=== PATIENT | male | born 1985 | race African-American/Black ===

== ENCOUNTER 2016-11-27 14:03 | Emergency (ER) | payer SELFPAY ==
--- NOTE | 2016-11-27 14:30 | NUR ---
no answer out in er lobby
--- NOTE | 2016-11-27 14:33 | NUR ---
PATIENT LEFT WITHOUT BEING SEEN BY DR. JORDAN. NO FURTHER CARE PROVIDED FOR PATIENT.
== END 2016-11-27 14:33 | disposition left against medical advice (07) ==
LOC: MED 14:03
DX: S69.91XA Unspecified injury of right wrist, hand and finger(s), initial encounter (principal); Z53.21 Procedure and treatment not carried out due to patient leaving prior to being seen by health care provider; X58.XXXA Exposure to other specified factors, initial encounter; Y93.89 Activity, other specified; Y92.89 Other specified places as the place of occurrence of the external cause; Y99.8 Other external cause status

== ENCOUNTER 2022-07-16 19:08 | Emergency (ER) | payer OTHER ==
[~2022-07-16] VITALS: Ht 193 cm; Wt 103.9 kg
[2022-07-16 19:15] VITALS: BP 143/79
--- NOTE | 2022-07-16 19:18 | NUR ---
TO LOBBY A/W BED AMBULATORY
[2022-07-16] MEDS ORDERED: ACETAMINOPHEN 325 MG TAB PO ONE (19:25)
--- NOTE | 2022-07-16 22:00 | NUR ---
PT TO BED #6
[2022-07-16] MEDS ORDERED: NACL 0.9% 1,000 ML IV ONE (22:25)
[2022-07-16 23:05] LABS: BASOPHILS % (AUTO) 0.6 % (0.0-2.0); EOSINOPHILS % (AUTO) 0.1 % (0.0-4.0); HEMATOCRIT 44.6 % (36-52); HEMOGLOBIN 14.9 g/dL (12.0-18.0); LYMPHOCYTES % (AUTO) 18.5 % (20.5-51.1); MEAN CORPUSCULAR HEMOGLOBIN 27 pg (27-31); MEAN CORPUSCULAR HGB CONC 33 g/dL (33-37); MEAN CORPUSCULAR VOLUME 79.7 fL (80-94); MONOCYTES # (AUTO) 0.5 K/uL (0.8-1.0); MONOCYTES % (AUTO) 8.9 % (1.7-9.3); NEUTROPHILS # (AUTO) 3.8 K/uL (1.8-7.7); NEUTROPHILS % (AUTO) 71.9 % (42.2-75.2); PLATELET COUNT (AUTO) 77 K/uL (140-450); RED CELL DISTRIBUTION WIDTH 14.8 % (11.6-13.7); WHITE BLOOD COUNT (AUTO) 5.2 K/uL (4.8-10.8)
[2022-07-16 23:22] LABS: ANION GAP 15.7 (8-16); CARBON DIOXIDE 22.8 mmol/L (21-32); CREATININE 1.3 mg/dL (0.6-1.3); POTASSIUM 3.5 mmol/L (3.5-5.1); TOTAL BILIRUBIN 2.2 mg/dL (0.0-1.0)
[2022-07-17] MEDS ORDERED: ONDA-188 PO (03:39)
[2022-07-17] MEDS ORDERED: ACETAMINOPHEN 325 MG TAB PO ONE (04:05)
[2022-07-17 04:08] VITALS: BP 118/75
--- NOTE | 2022-07-17 04:08 | NUR ---
Patient discharged with v/s stable. Written and verbal after care instructions given and explained. Patient verbalized understanding. Ambulatory with steady gait. All questions addressed prior to discharge. Advised to follow up with PMD.
== END 2022-07-17 04:07 | disposition home or self-care (01) ==
LOC: MED 19:08
DX: R11.2 Nausea with vomiting, unspecified (principal); Z20.822 Contact with and (suspected) exposure to COVID-19; R10.9 Unspecified abdominal pain; R51.9 Headache, unspecified
CPT/HCPCS: 36415; 76705; 80053; 83690; 85025; 87426; 87804; 99284; Q0092